=== PATIENT | male | born 1980 | race Caucasian/White ===

== ENCOUNTER 2018-06-09 22:16 | Inpatient (IN) | payer MEDICAID ==
[~2018-06-09] VITALS: Ht 172.7 cm; Wt 83.9 kg
[2018-06-09 22:32] VITALS: Ht 172.7 cm; Wt 83.9 kg
[2018-06-09 23:30] LABS: PLATELET COUNT 344 x10^3mcL (130-400); RED CELL DISTRIBUTION WIDTH 13.6 % (11.5-14.5)
[2018-06-09] MEDS ORDERED: HYDROCODONE/ACET (23:31)
[2018-06-09] MEDS ORDERED: PREDNISONE20 MG (23:32)
[2018-06-09] MEDS ORDERED: CYCLOBENZAPRINE10 MG PO (23:32)
[2018-06-09 23:51] LABS: CALCIUM 8.8 mg/dL (8.5-10.1); CARBON DIOXIDE 22.8 mmol/L (21-32); CHLORIDE SERUM 105 mmol/L (98-107); CREATININE SERUM 0.8 mg/dL (0.7-1.3); GFR1 > 60 mL/min; GLUCOSE SERUM 121 mg/dL (74-106); POTASSIUM SERUM 3.9 mmol/L (3.5-5.1); SODIUM SERUM 141 mmol/L (136-145)
[2018-06-10 00:09] LABS: ALBUMIN 3.8 g/dL (3.4-5.0); ALKALINE PHOSPHATASE 153 U/L (46-116); ALT/SGPT 37 U/L (16-63); AST/SGOT 6 U/L (15-37); BILIRUBIN TOTAL 0.46 mg/dL (0.20-1.00)
[2018-06-10 00:12] LABS: TOTAL PROTEIN, SERUM 8.8 g/dL (6.4-8.2)
[2018-06-10 00:14] LABS: BAND NEUTROPHIL 3 % (0-10); MONOCYTE 5 % (0-7); PLATELET MORPHOLOGY PLATELETS NORMAL; SEGMENTED NEUTROPHILS 83 % (37-75); rbc morphology (normal/abnorm) NORMAL (NORMAL)
[2018-06-10 01:29] VITALS: BP 148/111
[2018-06-10 02:14] LABS: CHOLESTEROL/HDL RATIO 5.3; MAGNESIUM 2.2 mg/dL (1.8-2.4); PHOSPHOROUS 4.2 mg/dL (2.5-4.9)
[2018-06-10 02:24] LABS: FREE T4 1.33 ng/dL (0.76-1.46); FREE THYROXINE INDEX 3.8 ug/dL (1.4-4.5)
[2018-06-10 02:47] LABS: T3 TOTAL 1.2 ng/mL
[2018-06-10 05:55] VITALS: BP 110/82
[2018-06-10 09:22] VITALS: BP 97/58
[2018-06-10 17:04] VITALS: BP 103/55
[2018-06-10 20:26] VITALS: BP 100/59
[2018-06-10 22:20] LABS: microscopic required? NO
[2018-06-10 22:34] LABS: urine erythrocyte NEGATIVE (NEGATIVE)
[2018-06-10 22:46] LABS: AMPHETAMINE QUAL UR NONE DETECTED (See below)
[2018-06-11 05:03] VITALS: BP 99/55
[2018-06-11 06:25] LABS: BASOPHIL % 0.5 % (0-2); PLATELET COUNT 313 x10^3mcL (130-400); RED CELL DISTRIBUTION WIDTH 12.7 % (11.5-14.5)
[2018-06-11 06:34] LABS: CALCIUM 8.3 mg/dL (8.5-10.1); CARBON DIOXIDE 29.9 mmol/L (21-32); CHLORIDE SERUM 109 mmol/L (98-107); CREATININE SERUM 0.8 mg/dL (0.7-1.3); GFR1 > 60 mL/min; GLUCOSE SERUM 89 mg/dL (74-106); MAGNESIUM 2.3 mg/dL (1.8-2.4); PHOSPHOROUS 4.9 mg/dL (2.5-4.9); SODIUM SERUM 145 mmol/L (136-145)
[2018-06-11 09:55] VITALS: BP 110/68
[2018-06-11 18:51] VITALS: BP 112/70
[2018-06-11 20:45] VITALS: BP 104/73
[2018-06-12 05:37] VITALS: BP 111/68
[2018-06-12 06:51] LABS: BASOPHIL % 0.2 % (0-2); PLATELET COUNT 276 x10^3mcL (130-400); RED CELL DISTRIBUTION WIDTH 13.6 % (11.5-14.5)
[2018-06-12 07:00] LABS: CALCIUM 8.8 mg/dL (8.5-10.1); CARBON DIOXIDE 27.4 mmol/L (21-32); CHLORIDE SERUM 104 mmol/L (98-107); CREATININE SERUM 0.8 mg/dL (0.7-1.3); GFR1 > 60 mL/min; GLUCOSE SERUM 93 mg/dL (74-106); MAGNESIUM 2.2 mg/dL (1.8-2.4); PHOSPHOROUS 4.3 mg/dL (2.5-4.9); POTASSIUM SERUM 3.9 mmol/L (3.5-5.1); SODIUM SERUM 139 mmol/L (136-145)
[2018-06-12 10:14] VITALS: BP 116/72
[2018-06-12 13:07] VITALS: BP 105/70
[2018-06-12 17:45] VITALS: BP 120/78
[2018-06-12 20:18] VITALS: BP 132/78
[2018-06-13 05:29] VITALS: BP 127/79
[2018-06-13 07:03] LABS: PLATELET COUNT 300 x10^3mcL (130-400)
[2018-06-13 07:09] LABS: CALCIUM 9.1 mg/dL (8.5-10.1); CARBON DIOXIDE 32.8 mmol/L (21-32); CHLORIDE SERUM 99 mmol/L (98-107); GFR1 > 60 mL/min; GLUCOSE SERUM 87 mg/dL (74-106); MAGNESIUM 2.3 mg/dL (1.8-2.4); PHOSPHOROUS 3.7 mg/dL (2.5-4.9); SODIUM SERUM 136 mmol/L (136-145)
[2018-06-13 09:39] VITALS: BP 125/75
[2018-06-13 13:57] LABS: ATYPICAL LYMPH 3 %; BAND NEUTROPHIL 0 % (0-10); BASOPHIL 0 % (0-2); MONOCYTE 14 % (0-7); SEGMENTED NEUTROPHILS 77 % (37-75)
[2018-06-13 13:58] LABS: PLATELET MORPHOLOGY PLATELETS NORMAL; rbc morphology (normal/abnorm) ABNORMAL (NORMAL)
[2018-06-13 17:45] VITALS: BP 116/69
[2018-06-13 20:56] VITALS: BP 113/71
[2018-06-14 06:10] VITALS: BP 110/73
[2018-06-14 08:24] VITALS: BP 110/73
== END 2018-06-14 10:35 | disposition short-term general hospital (02) | DRG 340 ==
LOC: ED 22:16 → MU 06-10 00:35
PROVIDERS: Emergency Medicine; Internal Medicine
DX: M84.451A Pathological fracture, right femur, initial encounter for fracture (principal); N17.0 Acute kidney failure with tubular necrosis; D72.829 Elevated white blood cell count, unspecified; E78.5 Hyperlipidemia, unspecified; Z68.28 Body mass index [BMI] 28.0-28.9, adult; F17.210 Nicotine dependence, cigarettes, uncomplicated
CPT/HCPCS: 83880; 84439; 94150; J2270; J2405; Q0092

== ENCOUNTER 2018-12-17 01:02 | Emergency (ER) | payer OTHER ==
[~2018-12-17] VITALS: Ht 172.7 cm; Wt 87.1 kg
[~2018-12-17 01:02] MED LIST: CYCLOBENZAPRINE10 MG PO; HYDROCODONE/ACET; PREDNISONE20 MG
[2018-12-17 01:07] VITALS: Ht 172.7 cm; Wt 87.1 kg
[2018-12-17 02:03] LABS: microscopic required? NO
[2018-12-17 02:11] LABS: UA SPECIFIC GRAVITY >=1.030 (1.005-1.035); urine erythrocyte NEGATIVE (NEGATIVE)
[2018-12-17 02:15] LABS: BASOPHIL % 0.2 % (0-2)
[2018-12-17 02:16] LABS: PLATELET COUNT 401 x10^3mcL (130-400); RED CELL DISTRIBUTION WIDTH 17.5 % (11.5-14.5)
[2018-12-17 02:44] LABS: CALCIUM 9.3 mg/dL (8.5-10.1); CARBON DIOXIDE 29.1 mmol/L (21-32); CHLORIDE SERUM 100 mmol/L (98-107); CREATININE SERUM 0.8 mg/dL (0.7-1.3); GFR1 > 60 mL/min; GLUCOSE SERUM 103 mg/dL (74-106); POTASSIUM SERUM 3.6 mmol/L (3.5-5.1); SODIUM SERUM 139 mmol/L (136-145)
[2018-12-17 02:58] LABS: ALKALINE PHOSPHATASE 116 U/L (46-116); ALT/SGPT 30 U/L (16-63); AST/SGOT 16 U/L (15-37); BILIRUBIN TOTAL 0.3 mg/dL (0.20-1.00); TOTAL PROTEIN, SERUM 7.8 g/dL (6.4-8.2)
[2018-12-17 04:57] VITALS: BP 127/64
== END 2018-12-17 04:57 | disposition home or self-care (01) ==
LOC: ED 01:02
PROVIDERS: Emergency Medicine
DX: R09.1 Pleurisy (principal); R50.9 Fever, unspecified; R10.11 Right upper quadrant pain; C83.35 Diffuse large B-cell lymphoma, lymph nodes of inguinal region and lower limb
CPT/HCPCS: J2270; J2405; J7030; Q0092; Q9967

== ENCOUNTER 2018-12-20 15:00 | Inpatient (IN) | payer OTHER ==
[~2018-12-20] VITALS: Ht 172.7 cm; Wt 86.7 kg
[2018-12-20 16:02] LABS: BASOPHIL % 0.4 % (0-2)
[2018-12-20 16:09] LABS: CALCIUM 10.2 mg/dL (8.5-10.1); CARBON DIOXIDE 26.8 mmol/L (21-32); CHLORIDE SERUM 101 mmol/L (98-107); GFR1 > 60 mL/min; GLUCOSE SERUM 114 mg/dL (74-106); POTASSIUM SERUM 3.8 mmol/L (3.5-5.1); SODIUM SERUM 139 mmol/L (136-145)
[2018-12-20 16:10] LABS: PLATELET COUNT 413 x10^3mcL (130-400); RED CELL DISTRIBUTION WIDTH 16.1 % (11.5-14.5)
[2018-12-20 16:14] LABS: ALBUMIN 4.4 g/dL (3.4-5.0); ALKALINE PHOSPHATASE 120 U/L (46-116); ALT/SGPT 32 U/L (16-63); AST/SGOT 18 U/L (15-37); BILIRUBIN TOTAL 0.39 mg/dL (0.20-1.00)
[2018-12-20 16:16] LABS: TOTAL PROTEIN, SERUM 8.9 g/dL (6.4-8.2)
[2018-12-20] MEDS ORDERED: NOR10T PO (18:47)
[2018-12-20 19:16] LABS: MAGNESIUM 2.1 mg/dL (1.8-2.4); PHOSPHOROUS 4.1 mg/dL (2.5-4.9)
[2018-12-20 19:50] LABS: microscopic required? NO
[2018-12-20 20:12] LABS: UA SPECIFIC GRAVITY >=1.030 (1.005-1.035); urine erythrocyte NEGATIVE (NEGATIVE)
[2018-12-20 20:17] VITALS: BP 120/74
[2018-12-21] VITALS (7 sets, daily range): BP systolic 98–111; BP diastolic 62–73
[2018-12-21 06:22] LABS: CARBON DIOXIDE 25.5 mmol/L (21-32); CHLORIDE SERUM 105 mmol/L (98-107); CREATININE SERUM 0.7 mg/dL (0.7-1.3); GFR1 > 60 mL/min; GLUCOSE SERUM 86 mg/dL (74-106); POTASSIUM SERUM 3.7 mmol/L (3.5-5.1); SODIUM SERUM 138 mmol/L (136-145)
[2018-12-21 06:35] LABS: PLATELET COUNT 315 x10^3mcL (130-400)
[2018-12-21 07:41] LABS: RED CELL DISTRIBUTION WIDTH 16.2 % (11.5-14.5)
[2018-12-22 05:35] VITALS: BP 104/63
[2018-12-22 06:23] LABS: BASOPHIL % 1.1 % (0-2); PLATELET COUNT 308 x10^3mcL (130-400)
[2018-12-22 06:24] LABS: RED CELL DISTRIBUTION WIDTH 16.2 % (11.5-14.5)
[2018-12-22 06:32] LABS: CALCIUM 9.1 mg/dL (8.5-10.1); CARBON DIOXIDE 29.1 mmol/L (21-32); CHLORIDE SERUM 104 mmol/L (98-107); CREATININE SERUM 0.8 mg/dL (0.7-1.3); GFR1 > 60 mL/min; GLUCOSE SERUM 80 mg/dL (74-106); MAGNESIUM 2.2 mg/dL (1.8-2.4); PHOSPHOROUS 4.5 mg/dL (2.5-4.9); POTASSIUM SERUM 3.8 mmol/L (3.5-5.1); SODIUM SERUM 141 mmol/L (136-145)
[2018-12-22 09:26] VITALS: BP 103/62
[2018-12-22 17:26] VITALS: BP 97/62
[2018-12-22 20:47] VITALS: BP 105/72
[2018-12-23 05:40] VITALS: BP 102/70
[2018-12-23 05:46] LABS: BASOPHIL % 0.7 % (0-2); PLATELET COUNT 312 x10^3mcL (130-400)
[2018-12-23 06:12] LABS: CALCIUM 9.2 mg/dL (8.5-10.1); CARBON DIOXIDE 23.8 mmol/L (21-32); CHLORIDE SERUM 104 mmol/L (98-107); CREATININE SERUM 0.7 mg/dL (0.7-1.3); GFR1 > 60 mL/min; GLUCOSE SERUM 89 mg/dL (74-106); MAGNESIUM 2.1 mg/dL (1.8-2.4); PHOSPHOROUS 4.8 mg/dL (2.5-4.9); POTASSIUM SERUM 3.8 mmol/L (3.5-5.1); SODIUM SERUM 140 mmol/L (136-145)
[2018-12-23 06:19] LABS: RED CELL DISTRIBUTION WIDTH 16.2 % (11.5-14.5)
[2018-12-23 06:25] VITALS: Ht 172.7 cm; Wt 86.7 kg
[2018-12-23 09:25] VITALS: BP 101/69
[2018-12-23 13:11] VITALS: BP 120/85
[2018-12-23 16:15] VITALS: BP 100/69
[2018-12-23 20:37] VITALS: BP 124/77
[2018-12-24 05:50] VITALS: BP 107/65
[2018-12-24 06:32] LABS: BASOPHIL % 1.2 % (0-2); PLATELET COUNT 325 x10^3mcL (130-400)
[2018-12-24 06:33] LABS: RED CELL DISTRIBUTION WIDTH 15.7 % (11.5-14.5)
[2018-12-24 07:02] LABS: CALCIUM 9.3 mg/dL (8.5-10.1); CARBON DIOXIDE 25.4 mmol/L (21-32); CHLORIDE SERUM 104 mmol/L (98-107); CREATININE SERUM 0.9 mg/dL (0.7-1.3); GFR1 > 60 mL/min; GLUCOSE SERUM 88 mg/dL (74-106); POTASSIUM SERUM 3.7 mmol/L (3.5-5.1); SODIUM SERUM 141 mmol/L (136-145)
[2018-12-24 08:33] VITALS: BP 109/68
[2018-12-24 13:05] VITALS: BP 103/71
[2018-12-24 15:57] VITALS: BP 108/70
[2018-12-24 20:39] VITALS: BP 102/66
[2018-12-25 05:22] VITALS: BP 105/71
[2018-12-25 08:56] LABS: BASOPHIL % 0.5 % (0-2); PLATELET COUNT 321 x10^3mcL (130-400); RED CELL DISTRIBUTION WIDTH 16.3 % (11.5-14.5)
[2018-12-25 09:04] LABS: CALCIUM 9.8 mg/dL (8.5-10.1); CARBON DIOXIDE 30.2 mmol/L (21-32); CHLORIDE SERUM 102 mmol/L (98-107); CREATININE SERUM 0.9 mg/dL (0.7-1.3); GFR1 > 60 mL/min; GLUCOSE SERUM 84 mg/dL (74-106); SODIUM SERUM 140 mmol/L (136-145)
[2018-12-25 09:20] VITALS: BP 102/66
[2018-12-25 16:21] VITALS: BP 116/70
[2018-12-25 21:09] VITALS: BP 116/74
[2018-12-26 05:41] VITALS: BP 112/67
[2018-12-26 06:48] LABS: BASOPHIL % 0.5 % (0-2); PLATELET COUNT 304 x10^3mcL (130-400); RED CELL DISTRIBUTION WIDTH 16.2 % (11.5-14.5)
[2018-12-26 07:02] LABS: CALCIUM 9.5 mg/dL (8.5-10.1); CARBON DIOXIDE 23.5 mmol/L (21-32); CHLORIDE SERUM 105 mmol/L (98-107); CREATININE SERUM 0.9 mg/dL (0.7-1.3); GFR1 > 60 mL/min; GLUCOSE SERUM 111 mg/dL (74-106); POTASSIUM SERUM 3.7 mmol/L (3.5-5.1); SODIUM SERUM 140 mmol/L (136-145)
[2018-12-26 09:24] VITALS: BP 102/66
[2018-12-26 12:58] VITALS: BP 101/64
[2018-12-26 16:20] VITALS: BP 139/86
[2018-12-26 20:44] VITALS: BP 114/70
[2018-12-27 05:44] VITALS: BP 105/63
[2018-12-27 06:26] LABS: BASOPHIL % 0.5 % (0-2); PLATELET COUNT 281 x10^3mcL (130-400)
[2018-12-27 06:36] LABS: CALCIUM 10.1 mg/dL (8.5-10.1); CARBON DIOXIDE 23.8 mmol/L (21-32); CHLORIDE SERUM 102 mmol/L (98-107); CREATININE SERUM 0.9 mg/dL (0.7-1.3); GFR1 > 60 mL/min; GLUCOSE SERUM 88 mg/dL (74-106); POTASSIUM SERUM 3.4 mmol/L (3.5-5.1); SODIUM SERUM 131 mmol/L (136-145)
[2018-12-27 06:44] LABS: RED CELL DISTRIBUTION WIDTH 15.5 % (11.5-14.5)
[2018-12-27 09:28] VITALS: BP 107/71
[2018-12-27 13:46] VITALS: BP 110/80
[2018-12-27 18:19] VITALS: BP 113/68
[2018-12-27 20:55] VITALS: BP 115/79
[2018-12-28 05:33] VITALS: BP 103/64
[2018-12-28 06:18] LABS: BASOPHIL % 0.3 % (0-2); PLATELET COUNT 261 x10^3mcL (130-400)
[2018-12-28 06:26] LABS: CALCIUM 9.2 mg/dL (8.5-10.1); CARBON DIOXIDE 23.4 mmol/L (21-32); CHLORIDE SERUM 105 mmol/L (98-107); CREATININE SERUM 0.7 mg/dL (0.7-1.3); GFR1 > 60 mL/min; GLUCOSE SERUM 96 mg/dL (74-106); POTASSIUM SERUM 3.9 mmol/L (3.5-5.1); SODIUM SERUM 140 mmol/L (136-145)
[2018-12-28 07:08] LABS: RED CELL DISTRIBUTION WIDTH 15.9 % (11.5-14.5)
[2018-12-28 09:15] VITALS: BP 121/75
[2018-12-28 16:06] VITALS: BP 100/59
[2018-12-28 21:05] VITALS: BP 116/70
[2018-12-29 05:20] VITALS: BP 113/77
[2018-12-29 05:50] LABS: PLATELET COUNT 274 x10^3mcL (130-400); RED CELL DISTRIBUTION WIDTH 14.4 % (11.5-14.5)
[2018-12-29 06:16] LABS: BASOPHIL % 2.3 % (0-2)
[2018-12-29 06:33] LABS: CALCIUM 9.7 mg/dL (8.5-10.1); CHLORIDE SERUM 105 mmol/L (98-107); CREATININE SERUM 0.6 mg/dL (0.7-1.3); GFR1 > 60 mL/min; GLUCOSE SERUM 97 mg/dL (74-106); POTASSIUM SERUM 3.6 mmol/L (3.5-5.1); SODIUM SERUM 141 mmol/L (136-145)
[2018-12-29 10:27] VITALS: BP 106/70
[2018-12-29 16:36] VITALS: BP 99/68
[2018-12-29 19:30] VITALS: BP 110/69
[2018-12-30 06:02] VITALS: BP 104/73
[2018-12-30 09:30] VITALS: BP 114/76
[2018-12-30] MEDS ORDERED: VORICONAZOLE (13:57)
[2018-12-30 17:28] VITALS: BP 105/66
[2018-12-30 20:30] VITALS: BP 125/79
[2018-12-31] MEDS ORDERED: VORICONAZOLE IV (00:04)
== END 2018-12-30 22:28 | DRG 721 ==
LOC: ED 15:00 → DU 18:14 → MU 12-27 09:57
PROVIDERS: Emergency Medicine; General Practice; Surgery; ADMIT Internal Medicine
PROC: 0JPT0WZ Removal of Totally Implantable Vascular Access Device from Trunk Subcutaneous Tissue and Fascia, Open Approach (ICD-10-PCS; principal; 2018-12-22 10:00)
DX: T80.212A Local infection due to central venous catheter, initial encounter (principal); B37.7 Candidal sepsis; C85.15 Unspecified B-cell lymphoma, lymph nodes of inguinal region and lower limb; K76.0 Fatty (change of) liver, not elsewhere classified; R74.0 Nonspecific elevation of levels of transaminase and lactic acid dehydrogenase [LDH]; Z68.29 Body mass index [BMI] 29.0-29.9, adult
CPT/HCPCS: 94150; J0690; J1450; J2248; J2250; J2704; J3010; J3465; J3490; J7030; J7040; J7050; J7120; Q0163

== ENCOUNTER 2019-01-18 00:31 | Emergency (ER) | payer OTHER ==
[~2019-01-18] VITALS: Ht 172.7 cm; Wt 88.2 kg
[~2019-01-18 00:31] MED LIST changes: +NOR10T PO; +VORICONAZOLE; +VORICONAZOLE IV
[2019-01-18 00:42] VITALS: Ht 172.7 cm; Wt 88.2 kg
[2019-01-18 03:39] VITALS: BP 135/69
== END 2019-01-18 03:39 | disposition home or self-care (01) ==
LOC: ED 00:31
DX: S83.91XA Sprain of unspecified site of right knee, initial encounter (principal); X58.XXXA Exposure to other specified factors, initial encounter; Y93.89 Activity, other specified; Y92.89 Other specified places as the place of occurrence of the external cause; Y99.8 Other external cause status
CPT/HCPCS: J2270; Q0092

== ENCOUNTER 2019-07-01 20:05 | Emergency (ER) | payer OTHER ==
[~2019-07-01] VITALS: Ht 172.7 cm; Wt 92.1 kg
[2019-07-01 20:09] VITALS: Ht 172.7 cm; Wt 92.1 kg
[2019-07-01 21:01] LABS: microscopic required? NO
[2019-07-01 21:07] LABS: UA SPECIFIC GRAVITY 1.025 (1.005-1.035); urine erythrocyte NEGATIVE (NEGATIVE)
[2019-07-01 21:09] LABS: BASOPHIL % 0.5 % (0-2); PLATELET COUNT 254 x10^3mcL (130-400); RED CELL DISTRIBUTION WIDTH 13.7 % (11.5-14.5)
[2019-07-01 21:22] LABS: CALCIUM 8.6 mg/dL (8.5-10.1); CARBON DIOXIDE 27.8 mmol/L (21-32); CHLORIDE SERUM 102 mmol/L (98-107); CREATININE SERUM 0.8 mg/dL (0.7-1.3); GFR1 > 60 mL/min; GLUCOSE SERUM 122 mg/dL (74-106); POTASSIUM SERUM 3.5 mmol/L (3.5-5.1); SODIUM SERUM 139 mmol/L (136-145)
[2019-07-01 21:26] LABS: ALBUMIN 3.9 g/dL (3.4-5.0); ALKALINE PHOSPHATASE 111 U/L (46-116); ALT/SGPT 35 U/L (16-63); AST/SGOT 12 U/L (15-37); BILIRUBIN TOTAL 0.29 mg/dL (0.20-1.00); LIPASE 135 IU/L (73-393); TOTAL PROTEIN, SERUM 7.8 g/dL (6.4-8.2)
[2019-07-01 23:50] VITALS: BP 119/67
== END 2019-07-01 23:50 | disposition home or self-care (01) ==
LOC: ED 20:05
PROVIDERS: Emergency Medicine
DX: M54.5 Low back pain (principal); Z91.048 Other nonmedicinal substance allergy status
CPT/HCPCS: J2270; J2405